=== PATIENT | male | born 1965 | race African-American/Black ===

== ENCOUNTER 2024-05-22 07:35 | Emergency (ER) | payer OTHER ==
[~2024-05-22] VITALS: Ht 185.4 cm; Wt 72.6 kg
[~2024-05-22 07:35] MED LIST: MEDROXYPROGESTE10 M1 PO; METHIMAZOLE5 M1 PO; MIRTAZAPINE15 M2 PO
[2024-05-22] MEDS ORDERED: METHIMAZOLE5 M1 PO (08:23)
[2024-05-22] MEDS ORDERED: MIRTAZAPINE15 M2 PO (08:23)
== END 2024-05-22 08:42 | disposition home or self-care (01) ==
LOC: ED 07:35
DX: Z76.0 Encounter for issue of repeat prescription (principal); F32.A Depression, unspecified; E05.90 Thyrotoxicosis, unspecified without thyrotoxic crisis or storm

== ENCOUNTER 2024-06-21 09:04 | Emergency (ER) | payer OTHER ==
[~2024-06-21] VITALS: Ht 185.4 cm; Wt 71.7 kg
[2024-06-21 09:23] LABS: BASO % 1.3 % (0.0-1.0); EOS # 0.3 10*3/uL (0.0-0.4); EOS % 8.6 % (1.0-4.0); HEMATOCRIT 40.9 % (42.0-52.0); MEAN CELL VOLUME 95.1 fl (80.0-94.0); MEAN CORPUSCULAR HGB 29.1 pg (27.0-31.0); MEAN CORPUSCULAR HGB CONC 30.6 g/dl (33.0-37.0); MONO # 0.2 10*3/uL (0.1-1.0); MONO % 7.7 % (3.0-9.0); NEUT # 1.5 10*3/uL (2.3-7.9); NEUT % 49.2 % (47.0-73.0); PLATELET COUNT AUTOMATED 289 10*3/uL (130-400); RED CELL DISTRI WIDTH 16.5 % (0-14.5); WHITE BLOOD COUNT 3.1 10*3/uL (4.8-10.8)
[2024-06-21 09:43] LABS: BUN 6 mg/dl (9-23); CHLORIDE 103 mmol/L (98-107); POTASSIUM 3.4 mmol/L (3.4-5.1)
[2024-06-21 09:44] LABS: ETHYL ALCOHOL < 3.0 mg/dl (<3)
[2024-06-21 09:48] LABS: BILIRUBIN Negative (Negative); BLOOD Negative (Negative); CLARITY Clear (Clear); COLOR Yellow (Yellow); GLUCOSE Negative (Negative); KETONE Negative (Negative); LEUKO ESTERASE Negative (Negative); NITRITE Negative (Negative); SPECIFIC GRAVITY <= 1.005 (1.001-1.030); UROBILINOGEN 0.2 E.U./dl (0.0-1.0)
[2024-06-21 09:56] LABS: URINE AMPHETAMINES Negative (1000ng/ml); URINE BARBITURATES Negative (200ng/ml); URINE BENZODIAZEPINES Negative (200ng/ml); URINE CANNABINOIDS (THC) Negative (50ng/ml); URINE COCAINE Negative (300ng/ml); URINE METHADONE Negative (300ng/ml); URINE OPIATES Negative (300ng/ml); URINE PHENCYCLIDINE Negative (25ng/ml)
[2024-06-21 09:58] LABS: WBC 0-2 wbc/hpf (0-5)
== END 2024-06-21 14:02 | disposition short-term general hospital (02) ==
LOC: ED 09:04
PROVIDERS: Emergency Medicine
DX: F43.21 Adjustment disorder with depressed mood (principal); Z79.899 Other long term (current) drug therapy